=== PATIENT | female | born 1955 | race Caucasian/White ===

== ENCOUNTER 2020-02-17 19:34 | Emergency (ER) | payer BC ==
[2020-02-17 19:45] VITALS: BP 176/97; PULSE 72; RESP 16; TEMP 98.1
[2020-02-17] MEDS ORDERED: DIPH,PERTUS(ACELL)TETVAC-LF 0.5 ML VIAL IM ONE (20:08)
[2020-02-17] MEDS ORDERED: LIDOCAINE 1% INJ 10MG/ML (20 ML MDV) SQ ONE (20:08)
[2020-02-17] MEDS ORDERED: BACITRACIN OINT 1 EACH PACKET TOPICAL ONE (20:08)
--- NOTE | 2020-02-17 20:24 | ED ---
Wound/Laceration HPI - General Chief Complaint: Wound/Laceration Stated Complaint: R Hand Lac Time Seen by Provider: 02/17/20 19:48 Source: patient Mode of arrival: ambulatory Limitations: no limitations - History of Present Illness Initial Comments: Patient is a 64-year-old female presenting to emergency Department with complaints of a laceration to her right thumb. Patient states a very sharp that she was unpacking slipped out of her hand and fell onto her right thumb. She denies being on blood thinners. She states she does not remember her last tetanus vaccine. Bleeding is controlled at this time. She has no further complaints. - Related Data Allergies Allergy/AdvReac Type Severity Reaction Status Date / Time bupropion [From Wellbutrin] Allergy Rash/Hives Verified 02/17/20 19:47 amoxicillin AdvReac Rash/Hives Verified 02/17/20 19:47 codeine AdvReac Rash/Hives Verified 02/17/20 19:47 venlafaxine [From Effexor] AdvReac Rash/Hives Verified 02/17/20 19:47 Review of Systems ROS Statement: Those systems with pertinent positive or pertinent negative responses have been documented in the HPI. ROS Other: All systems not noted in ROS Statement are negative. Past Medical History Past Medical History: No Reported History History of Any Multi-Drug Resistant Organisms: None Reported Past Surgical History: No Surgical Hx Reported Past Psychological History: No Psychological Hx Reported Smoking Status: Never smoker Past Alcohol Use History: Occasional Past Drug Use History: None Reported General Exam - General Exam Comments Initial Comments: GENERAL: Patient is well-developed and well-nourished. Patient is nontoxic and in no acute distress. HEAD: Atraumatic, normocephalic. EYES: Pupils equal round and reactive to light, extraocular movements intact, sclera anicteric, conjunctiva are normal. Eyelids were unremarkable. ENT: TMs normal, nares patent, oropharynx clear without exudates. Moist mucous membranes. NECK: Normal range of motion, supple without lymphadenopathy or JVD. LUNGS: Unlabored respirations. Breath sounds clear to auscultation bilaterally and equal. No wheezes rales or rhonchi. HEART: Regular rate and rhythm without murmurs, rubs or gallops. ABDOMEN: Soft, nontender, normoactive bowel sounds. No guarding, no rebound. No masses appreciated. : Deferred MUSCULOSKELETAL: Normal extremities with adequate strength and normal range of motion, no pitting or edema. No clubbing or cyanosis. NEUROLOGICAL: Patient is alert and oriented x 3. Normal speech, normal gait. PSYCH: Normal mood, normal affect. SKIN: Warm, Dry, normal turgor, no rashes. Patient has a 2 cm laceration to the base of her right thumb. There is no active bleeding. Limitations: no limitations Course Vital Signs 02/17/20 19:44 Temperature 98.1 F Pulse Rate 72 Respiratory 16 Rate Blood Pressure 176/97 O2 Sat by Pulse 100 Oximetry Procedures - Laceration Laceration #1 Consent Obtained: verbal consent Indication: laceration Site: hand (Base of the right thumb) Size (cm): 2 Description: linear Depth: simple, single layer Anesthetic Used: lidocaine 1% Anesthesia Technique: local infiltration Amount (mls): 4 Pre-repair: irrigated extensively Type of Sutures: nylon Size of Sutures: 5-0 Number of Sutures: 6 Technique: simple, interrupted Patient Tolerated Procedure: well Medical Decision Making - Medical Decision Making Patient is 64-year-old female here with a 2 cm laceration on the right thumb after she dropped a knife onto it. She did not remember her last tetanus vaccine, that was updated today. Patient's wound was cleaned, closed with 6, 5- 0 sutures. Patient tolerated procedure well. She is stable for discharge. Stitches may be removed in 7-10 days. She is in agreement with this plan of c are. Disposition Clinical Impression: Laceration of hand, right Disposition: HOME SELF-CARE Condition: Stable Instructions (If sedation given, give patient instructions): Care For Your Stitches (ED) Additional Instructions: Please return to the Emergency Department if symptoms worsen or any other concerns. Keep area clean and dry. Sutures need to be removed in 7-10 days. Is patient prescribed a controlled substance at d/c from ED?: No Referrals: None,Stated [Primary Care Provider] - 1-2 days
== END 2020-02-17 21:23 | disposition home or self-care (01) ==
LOC: EC 19:34
DX: S61.011A Laceration without foreign body of right thumb without damage to nail, initial encounter (principal); Z88.8 Allergy status to other drugs, medicaments and biological substances; Z88.5 Allergy status to narcotic agent; Z88.0 Allergy status to penicillin; W26.0XXA Contact with knife, initial encounter; Y93.89 Activity, other specified
CPT/HCPCS: 90471; 12001; 99282; 90715; J2001